=== PATIENT | female | born 1955 | race Caucasian/White ===

== ENCOUNTER 2021-07-12 16:26 | Inpatient (IN) | payer OTHER, MEDICARE ==
[~2021-07-12] VITALS: Ht 160 cm; Wt 68.0 kg
[2021-07-12 16:26] VITALS: BP_SYST 138
[~2021-07-12 16:26] MED LIST: DULO60CA42 PO; LEVO25TA2 PO; WELSR150 PO
[2021-07-12] MEDS ORDERED: MORPHINE 4 MG INJ. 4 MG/ML VIAL ONE (16:38)
[2021-07-12] MEDS ORDERED: ONDANSETRON HCL 4 MG/2 ML VIAL ONE (16:39)
[2021-07-12] MEDS ORDERED: LORazepam 2 MG/ML VIAL ONE (16:40)
[2021-07-12] MEDS ORDERED: LORazepam 2 MG/ML VIAL IVP ONE (16:45)
[2021-07-12] MEDS ORDERED: NACL 0.9% 1,000 ML IV ONE (16:45)
[2021-07-12] MEDS ORDERED: ONDANSETRON HCL 4 MG/2 ML VIAL IVP ONE (16:45)
[2021-07-12] MEDS ORDERED: MORPHINE 4 MG INJ. 4 MG/ML VIAL IVP ONE (16:45)
--- NOTE | 2021-07-12 16:47 | NUR ---
Pt in bed 1 in a gown with c-collar in place
--- NOTE | 2021-07-12 16:48 | NUR ---
ED physician at the bedside to assess pt
[2021-07-12 17:00] LABS: BASOPHILS % (AUTO) 0.5 % (0.0-2.0); EOSINOPHILS # (AUTO) 0.1 K/uL (0.0-0.4); EOSINOPHILS % (AUTO) 1.5 % (0.0-4.0); HEMATOCRIT 36.5 % (36-48); HEMOGLOBIN 12.3 g/dL (12.0-16.0); LYMPHOCYTES # (AUTO) 1.1 K/uL (1.0-5.5); LYMPHOCYTES % (AUTO) 19.1 % (20.5-51.5); MEAN CORPUSCULAR HEMOGLOBIN 29 pg (27-31); MEAN CORPUSCULAR HGB CONC 34 % (32-36); MEAN CORPUSCULAR VOLUME 85 fL (79.0-98.0); MONOCYTES # (AUTO) 0.6 K/uL (0.0-1.0); NEUTROPHILS # (AUTO) 3.9 K/uL (1.8-7.7); NEUTROPHILS % (AUTO) 67.9 % (40.0-70.0); PLATELET COUNT (AUTO) 317 K/uL (130-430); RED BLOOD CELL COUNT(AUTO) 4.29 MIL/uL (4.2-6.2); RED CELL DISTRIBUTION WIDTH 13.5 % (9.0-15.0); WHITE BLOOD COUNT (AUTO) 5.7 K/uL (4.8-10.8)
[2021-07-12 17:02] LABS: ANION GAP 10 (5-15); CHLORIDE 105 mmol/L (98-107); CREATININE 1.15 mg/dL (0.55-1.30); GLUCOSE 109 mg/dL (70-99); POTASSIUM 3.4 mmol/L (3.5-5.1); SODIUM SERUM 138 mmol/L (136-145); UREA NITROGEN, BLOOD 10 mg/dL (8-21)
--- NOTE | 2021-07-12 17:03 | NUR ---
[facility] Dept officer Michelle at the bedside. Badge # [id number]
[2021-07-12 17:05] LABS: ALCOHOL, BLOOD < 3 mg/dL (<10); GFR AFRICAN AMERICAN 61 mL/min (>90)
[2021-07-12 17:13] LABS: ALANINE AMINOTRANSFERASE 23 U/L (12-78); ALBUMIN 3.7 g/dL (3.4-4.8); ASPARTATE AMINOTRANSFERASE 26 U/L (10-37); TOTAL BILIRUBIN 0.2 mg/dL (0.0-1.0)
[2021-07-12] MEDS ORDERED: DIPH-TET-PERTUS Vaccine 0.5 ML VIAL (ADACEL) I.M. ONE (18:00)
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
--- NOTE | 2021-07-12 19:28 | NUR ---
Care transferred over to Indy ANDREWS at this time. Pt in no acute distress Aox4 GCS 15.
--- NOTE | 2021-07-12 19:35 | NUR ---
Pt aaox3, denies sob/cp/any pain, (-)facial droop/arm drift/slurred speech, resp non labored, on cm-sr 90-94, SatO2-98%. +klarissa to small lac to scalp, no active bleeding noted. Pt offers no complaints at present. kept comfortable. admitted for observation, awaiting for bed availability.
--- NOTE | 2021-07-12 19:52 | NUR ---
Swabbed for COVID. Sent to lab.
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
--- NOTE | 2021-07-12 21:18 | NUR ---
Pt in no acute distress, transported to floor w/ monitor / RN, endorsed to Roman ANDREWS
[2021-07-12 21:34] VITALS: BP_SYST 136
[2021-07-12] MEDS ORDERED: ONDANSETRON HCL 4 MG/2 ML VIAL IVP PRN (23:15)
[2021-07-13 00:55] VITALS: BP_SYST 126
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
--- NOTE | 2021-07-13 05:35 | NUR ---
recieved pt from ED. Pt is aox4, ambulatory, vss, Pt lungs are clear, bowel sounds present, and able to articulate needs. Pt denies pain on her head, with 2 inlac and klarissa. Pt head ct is neg. Pt nauseated, MD made aware with order of zofran 4 mg prn. Pt arrived sinus rhthym on the monitor with episodes of sinus tach, pt states " she has alot on her mind" Will continue to monitor through the night.
[2021-07-13] MEDS: LEVOTHYROXINE SODIUM 0.025 MG TABLET PO SCH (06:12)
[2021-07-13 08:05] VITALS: BP_SYST 133
[2021-07-13] MEDS: ACETAMINOPHEN 325 MG TABLET PO PRN ×3 (08:42→22:41)
[2021-07-13] MEDS: DULoxetine HCL 30 MG CAPSULE.DR (CYMBALTA) PO SCH (08:42)
[2021-07-13] MEDS ORDERED: buPROPion HCL 150 MG TABLET.SA PO SCH (09:00)
--- NOTE | 2021-07-13 19:01 | NUR ---
PT HAS BEEN STABLE THE WHOLE SHIFT, NO UNTOWARD INCIDENT. PT IS AMBULATORY TO BATHROOM. ALL NEEDS ATTENDED TO AND MET. WILL ENDORSE TO NIGHT NURSE.
--- NOTE | 2021-07-13 20:20 | NUR ---
Patient says she arrived from [place] without her klonipin rx. Recalls taking as needed to help with sleep, cannot recall dose, thinks its the smallest dose. Will endorse for md approval / orders . Srikanth Portillo RN
[2021-07-13 20:21] VITALS: BP_SYST 111
--- NOTE | 2021-07-13 22:54 | NUR ---
Left message with answering service regarding patient request for something for anxiety. Srikanth Portillo RN
[2021-07-14 00:09] VITALS: BP_SYST 106
[2021-07-14] MEDS: LEVOTHYROXINE SODIUM 0.025 MG TABLET PO SCH (06:55)
[2021-07-14 08:29] VITALS: BP_SYST 135
[2021-07-14] MEDS: buPROPion HCL 150 MG TABLET.SA PO SCH (08:56)
[2021-07-14] MEDS: DULoxetine HCL 30 MG CAPSULE.DR (CYMBALTA) PO SCH (08:56)
[2021-07-14 16:00] VITALS: BP_SYST 146
[2021-07-14] MEDS: ACETAMINOPHEN 325 MG TABLET PO PRN (16:20)
--- NOTE | 2021-07-14 19:31 | NUR ---
Patient has had an uneventful shift. She was seen by psychiatrist earlier during the shift. Patient's headache has been controlled with prn tylenol. Pt has been compliant with nursing care initiated. VSS. Pt has been awake, alert, and talkative throughout the shift. Report given to oncoming nurse.
[2021-07-15 00:12] VITALS: BP_SYST 124
[2021-07-15] MEDS: LEVOTHYROXINE SODIUM 0.025 MG TABLET PO SCH (06:14)
--- NOTE | 2021-07-15 08:00 | NUR ---
INITIAL NOTE PATIENT IS AWAKE, ALERT AND ORIENTED. PATIENT DENIES ANY HEAD PAIN OR DIZZINESS. PT IS SITTING UP EATING HER BREAKFAST. CALL LIGHT WITHIN REACH AND SAFETY PRECAUTIONS IN PLACE.
[2021-07-15 08:02] VITALS: BP_SYST 114
[2021-07-15] MEDS: buPROPion HCL 150 MG TABLET.SA PO SCH (08:39)
[2021-07-15] MEDS: DULoxetine HCL 30 MG CAPSULE.DR (CYMBALTA) PO SCH (08:39)
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
[2021-07-15 11:32] VITALS: BP_SYST 135
--- NOTE | 2021-07-15 12:00 | NUR ---
NOTES PT IS EATING LUNCH. DENIES ANY HEAD PAIN OR NAUSEA. SAFETY PRECAUTIONS IN PLACE AND CALL LIGHT WITHIN REACH.
--- NOTE | 2021-07-15 12:36 | NUR ---
NOTES PATIENT IS SITTING IN BED, EATING HER LUNCH. DENIES ANY ABDOMINAL PAIN OR DISCOMFORT. DENIES NAUSEA. NO S/S OF ANXIOUSNESS. PT IS TOLERATING SOFT CARDIAC DIET WELL. WILL CONTINUE TO MONITOR. SAFETY PRECAUTIONS IN PLACE AND CALL LIGHT WITHIN REACH. Addendum: 07/15/21 at 1243 by Erica Chowdhury LVN WRONG PATIENT
--- NOTE | 2021-07-15 13:28 | NUR ---
MD ROUNDS Seen by Dr. Lew and order patient to discharge home and to continue home medications.
[2021-07-15 14:13] VITALS: BP_SYST 135
[2021-07-15 15:48] VITALS: BP_SYST 139
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
--- NOTE | 2021-07-23 12:41 | NUR ---
Professor Of Engineering CLERICAL PROOFREADER made a Post Discharge Follow-up Phone Call to discharged patient, Trice, but her listed ph is a nonworking number. CLERICAL PROOFREADER called an emergency contact for a friend, , not working.
== END 2021-07-15 15:20 | disposition home or self-care (01) | DRG 89 ==
LOC: SED 16:26 → STU 18:59
PROVIDERS: ADMIT Internal Medicine; ATTEND Internal Medicine
PROC: 0HQ0XZZ Repair Scalp Skin, External Approach (ICD-10-PCS; principal; 2021-07-12)
DX: S06.0X1A Concussion with loss of consciousness of 30 minutes or less, initial encounter (principal); F33.1 Major depressive disorder, recurrent, moderate; R41.0 Disorientation, unspecified; S01.91XA Laceration without foreign body of unspecified part of head, initial encounter; E03.9 Hypothyroidism, unspecified; F41.9 Anxiety disorder, unspecified; Z20.822 Contact with and (suspected) exposure to COVID-19; X58.XXXA Exposure to other specified factors, initial encounter; E07.9 Disorder of thyroid, unspecified; W18.39XA Other fall on same level, initial encounter; J45.909 Unspecified asthma, uncomplicated; Z88.2 Allergy status to sulfonamides; Z79.899 Other long term (current) drug therapy; Y93.89 Activity, other specified; Y92.89 Other specified places as the place of occurrence of the external cause; Y99.8 Other external cause status
CPT/HCPCS: 0001A; 12001; 90471; 96374; 96375; 99285; 36415; 70450-TC; 71045; 72125-TC; 76376; 80053; 84484; 85025; 86886; 86900; 86901; 90715; 93005; G0378; G0482; J2060; J2270; J2405; J7030

== ENCOUNTER 2021-07-21 17:17 | Emergency (ER) | payer OTHER, MEDICARE ==
[~2021-07-21] VITALS: Ht 160 cm; Wt 68.0 kg
[2021-07-21 17:44] VITALS: BP_SYST 150
--- NOTE | 2021-07-21 17:52 | NUR ---
Patient to ER bed H1 to gown for evaluation. Side rails up. Report given to LISSETH ANDREWS.
--- NOTE | 2021-07-21 17:55 | NUR ---
Pt brought by self, A&Ox4, pt presents to ER for klarissa removal after head LAC, klarissa were placed on 07/12/21, pt afebrile, skin pink and warm, no bleeding noted,will cont to monitor
--- NOTE | 2021-07-21 17:58 | NUR ---
Dr Melendez evaluating patient at bedside
--- NOTE | 2021-07-21 18:07 | NUR ---
3 OLIVA REMOVED INTACT.PT TOLERATED WELL.PT TO RECEIVE WOUND CARE.
--- NOTE | 2021-07-21 18:18 | NUR ---
BACTRACIN APPLIED TO WOUND ON HEAD.
[2021-07-21] MEDS ORDERED: BACI15OI13 TP (18:19)
[2021-07-21 18:30] VITALS: BP_SYST 150
--- NOTE | 2021-07-21 18:36 | NUR ---
Patient given verbal discharge instructions and verbalizes understanding. Pt did not wait for written ppwk , ER discussed with patient the results and treatment provided. Patient in stable condition. ID arm band removed. Rx of Bacitracin given. Patient educated on pain management and to follow up with PMD. Pain Scale 0/10 . Opportunity for questions provided and answered. Medication side effect fact sheet provided.
== END 2021-07-21 18:30 | disposition home or self-care (01) ==
LOC: SED 17:17
DX: S01.01XD Laceration without foreign body of scalp, subsequent encounter (principal); Z48.02 Encounter for removal of sutures; I10 Essential (primary) hypertension; J45.909 Unspecified asthma, uncomplicated; Z88.2 Allergy status to sulfonamides
CPT/HCPCS: 99282